=== PATIENT | male | born 1960 | race Two or more races ===

== ENCOUNTER 2021-10-11 17:27 | Outpatient (CLI) | payer OTHER | END 2021-10-11 17:33 | disposition home or self-care (01) | LOC: LAB 17:27 | PROVIDERS: ATTEND Urology | DX: R97.20 Elevated prostate specific antigen [PSA] (principal) ==

== ENCOUNTER 2021-11-23 07:36 | Outpatient (CLI) | payer OTHER | END 2021-11-23 10:39 | disposition home or self-care (01) | LOC: SONOGRAMA 07:36 | PROVIDERS: ATTEND Urology | DX: C61 Malignant neoplasm of prostate (principal); N40.0 Benign prostatic hyperplasia without lower urinary tract symptoms ==